=== PATIENT | female | born 1990 | race Caucasian/White ===

== ENCOUNTER 2019-10-30 13:10 | Observation (INO) | payer MEDICAID, OTHER ==
[~2019-10-30] VITALS: Ht 157.5 cm; Wt 78.5 kg
[2019-10-31] MEDS ORDERED: PREN-96 PO (05:12)
== END 2019-10-30 14:27 | disposition home or self-care (01) | DRG 566 ==
LOC: LDRP 13:10
PROVIDERS: ADMIT Obstetrics & Gynecology; ATTEND Obstetrics & Gynecology
DX: O62.9 Abnormality of forces of labor, unspecified (principal); O99.89 Other specified diseases and conditions complicating pregnancy, childbirth and the puerperium; M54.9 Dorsalgia, unspecified; Z3A.38 38 weeks gestation of pregnancy
CPT/HCPCS: 59025; 81002; G0378

== ENCOUNTER 2019-10-31 03:44 | Observation (INO) | payer MEDICAID ==
[2019-10-31] MEDS ORDERED: PREN-96 PO (05:12)
[2019-10-31] MEDS ORDERED: LIDOCAINE 2%HCL (LOCAL ANESTH.) INJ 20ML MDV ONE (10:34)
== END 2019-10-31 04:40 | disposition home or self-care (01) | DRG 566 ==
LOC: LDRP 03:44
PROVIDERS: ADMIT Obstetrics & Gynecology; ATTEND Obstetrics & Gynecology
DX: O62.9 Abnormality of forces of labor, unspecified (principal); Z3A.38 38 weeks gestation of pregnancy
CPT/HCPCS: 59025; 81002; G0378

== ENCOUNTER 2019-10-31 06:50 | Inpatient (IN) | payer MEDICAID ==
[~2019-10-31] VITALS: Ht 157.5 cm; Wt 78.5 kg
[~2019-10-31 06:50] MED LIST: PREN-96 PO
[2019-10-31] MEDS ORDERED: WITCH HAZEL-GLYCERIN PAD TOP PRN (07:45)
[2019-10-31] MEDS ORDERED: PHISODERM TOP SOLN 240ML BTL TOP PRN (07:45)
[2019-10-31] MEDS ORDERED: NALBUPHINE HCL 10 MG/1ml INJECTION IV PRN (07:45)
[2019-10-31] MEDS ORDERED: METHYLERGONOVINE MALEATE 0.2 MG/ML AMP IM PRN (07:45)
[2019-10-31] MEDS ORDERED: CARBOPROST TROMETHAMINE 250 MCG/1ML VIAL IM PRN (07:45)
[2019-10-31] MEDS ORDERED: LACT. RINGERS/OXYTOCIN 20UNITS 1,000 ML IV SCH (07:45)
[2019-10-31] MEDS ORDERED: DERMOPLAST 60ML BOTTLE TOP PRN (07:45)
[2019-10-31] MEDS ORDERED: LIDOCAINE 2%HCL (LOCAL ANESTH.) INJ 20ML MDV ID ONE (07:45)
[2019-10-31] MEDS ORDERED: LACTATED RINGER'S 1,000 ML IV ONE (08:43)
[2019-10-31 08:45] LABS: Urine WBC None Seen /hpf (0 - 5)
[2019-10-31] MEDS ORDERED: ePHEDrine SULFATE 50 MG/ML AMP IV ONE (08:45)
[2019-10-31] MEDS ORDERED: fentaNYL CITRATE 100 MCG/2 ML VL IV ONE (08:45)
[2019-10-31] MEDS ORDERED: LIDOCAINE HCL 2 %PF INJ 10ML AMP IJ ONE (08:45)
[2019-10-31] MEDS ORDERED: NALOXONE HCL 0.4 MG/ML VIAL IV ONE (08:45)
[2019-10-31] MEDS ORDERED: fentaNYL W ROPIVACAINE 150 ML EPI SCH (08:45)
[2019-10-31] MEDS ORDERED: PROMETHAZINE HCL 25 MG/ML 1ML IV PRN ×2 (08:45→09:00)
[2019-10-31 09:00] LABS: Eosinophils # (auto) 0 uL; Eosinophils % (auto) 0.1 % (0.0-7.0); Lymphocytes # (auto) 1.6 uL; Neutrophils # (auto) 10.8 uL
[2019-10-31] MEDS ORDERED: BUTORPHANOL TARTRATE 2 MG/1 ML VIAL IV PRN (09:00)
[2019-10-31 09:02] LABS: Basophils # (auto) 0 uL; Basophils % (auto) 0.2 % (0.0-2.0); Hematocrit 38.5 % (36.0-46.0); Hemoglobin 13.3 g/dL (12.2-16.2); Lymphocytes % (auto) 12.6 % (10.0-50.0); Mean Corpuscular Hemoglobin 34.2 pg (28.0-32.0); Mean Corpuscular Hgb Conc. 34.5 g/dL (32.0-36.0); Monocytes # (auto) 0.6 uL; Monocytes % (auto) 4.7 % (0.0-12.0); Neutrophils % (auto) 82.4 % (37.0-80.0); Platelet Count (auto) 287 10^3/uL (140-450); Red Blood Cells 3.89 10^6/uL (4.0-5.20); Red Cell Distribution Width 11.5 % (11.8-14.3); White Blood Cell 13.1 10^3/uL (4.4-10.8)
[2019-10-31 09:02] LABS: Urine Amorphous Crystal MANY /hpf (None Seen); Urine Bacteria NONE SEEN /hpf (None Seen); Urine Blood 2+ /uL (Negative); Urine Mucus FEW (None Seen)
[2019-10-31 09:09] LABS: INR 0.96 (0.9-1.15); Partial Thromboplastin Time 27.1 sec (23.64-32.05)
[2019-10-31 10:05] LABS: Albumin 2.7 g/dL (3.4-5.0); Calcium 8.9 mg/dL (8.5-10.1); Potassium 3.7 mmol/L (3.5-5.1)
[2019-10-31 10:11] LABS: BUN/Creatinine Ratio 20.8; Bilirubin, Total 0.3 mg/dL (0.2-1.0); Total Protein 7.4 g/dL (6.4-8.2)
[2019-10-31 10:13] LABS: Alcohol, Urine < 3.0 mg/dL (0-5); Amphetamine Screen, Urine NEGATIVE (NEGATIVE); Barbiturate Scree,Urine NEGATIVE (NEGATIVE); Benzodiazephine Screen, Urine NEGATIVE (NEGATIVE); Cannabinoid Screen, Urine NEGATIVE (NEGATIVE); Cocaine Screen, Urine NEGATIVE (NEGATIVE); Opiate Scree,Urine NEGATIVE (NEGATIVE); Phencyclidine Screen, Urine NEGATIVE (NEGATIVE)
--- NOTE | 2019-10-31 13:05 | NUR ---
Ambulation: Patient OOB with standby assistance by RN. Patient ambulated to bathroom with steady gait. Patient able to void 450 ML without difficulty. [facility] teaching provided with returned demonstration by patient. Clean gown provided and bed linen changed. Patient ambulated back to bed with steady gait and no distress noted.
[2019-10-31 15:30] VITALS: BP 96/52
[2019-10-31] MEDS ORDERED: LACT. RINGERS/OXYTOCIN 20UNITS 500 ML IV ONE (15:45)
[2019-10-31] MEDS ORDERED: ACETAMINOPHEN 325 MG TAB PO PRN (15:45)
[2019-10-31] MEDS: IBUPROFEN 600 MG TAB PO PRN (17:10)
[2019-10-31] MEDS ORDERED: DOCUSATE SOD 100 MG CAP PO ONE (17:45)
[2019-10-31 19:30] VITALS: BP 93/54
[2019-10-31 23:00] VITALS: BP 101/55
[2019-11-01 02:37] VITALS: BP 103/58
[2019-11-01] MEDS: IBUPROFEN 600 MG TAB PO PRN (04:27)
[2019-11-01 06:51] VITALS: BP 104/52
--- NOTE | 2019-11-01 07:00 | NUR ---
Discharge: Discharge instructions given as ordered. Pt encouraged to follow up with [facility] as instructed. All questions and concerns addressed. Patient verbalized understanding. Medication reconciliation completed and copy given to patient. Patient encouraged to prepare to depart unit. Addendum: 11/01/19 at 1223 by Chalo Colon RN PATIENT REFUSED INFLUENZA AND T-DAP.
[2019-11-01] MEDS ORDERED: DOCUSATE CALCIUM 240 MG CAP PO SCH (10:00)
[2019-11-01 11:00] VITALS: BP 96/58
--- NOTE | 2019-11-01 12:10 | NUR ---
Discharge: Patient taken to vehicle via wheelchair with all personal belongings, accompanied by staff and family member. No distress noted at time of departure, no adverse changes in status since initial assessment.
[2019-11-02 10:16] LABS: RPR Non Reactive (Non Reactive)
== END 2019-11-01 12:10 | disposition home or self-care (01) | DRG 560 ==
LOC: LDRP 06:50 → OBSVTOIN 07:20 → LDRP 07:21
PROVIDERS: ADMIT Obstetrics & Gynecology; ATTEND Obstetrics & Gynecology
PROC: 10E0XZZ Delivery of Products of Conception, External Approach (ICD-10-PCS; principal; 2019-10-31)
PROC: 0KQM0ZZ Repair Perineum Muscle, Open Approach (ICD-10-PCS; 2019-10-31)
DX: O70.1 Second degree perineal laceration during delivery (principal); Z37.0 Single live birth; Z3A.39 39 weeks gestation of pregnancy
CPT/HCPCS: 36415; 59025; 59409; 80053; 80307; 81001; 81002; 84112; 85025; 85610; 85730; 86592; 86850; 86900; 86901; 96365; 96366; G0378; J2590

== ENCOUNTER 2020-09-05 02:24 | Observation (INO) | payer MEDICAID ==
[2020-09-05] MEDS ORDERED: LACTATED RINGER'S 1,000 ML IV ONE (03:30)
== END 2020-09-05 05:05 | disposition home or self-care (01) ==
LOC: UNDOADMOB 02:24 → LDRP 02:24 → UNDODISOB 05:05
PROVIDERS: ADMIT Obstetrics & Gynecology; ATTEND Obstetrics & Gynecology
DX: O62.9 Abnormality of forces of labor, unspecified (principal); Z3A.28 28 weeks gestation of pregnancy
CPT/HCPCS: 59025; 76805; 76817; 81002; 96360; G0378

== ENCOUNTER → 2021-03-09 | Emergency (ER) | payer MEDICAID | END | disposition left against medical advice (07) | LOC: ER 19:35 | DX: R11.2 Nausea with vomiting, unspecified (principal); R51.9 Headache, unspecified; Z53.21 Procedure and treatment not carried out due to patient leaving prior to being seen by health care provider ==

== ENCOUNTER 2022-07-31 15:47 | Observation (INO) | payer MEDICAID | END 2022-07-31 17:10 | disposition home or self-care (01) | LOC: UNDOADMOB 15:47 → LDRP 15:47 | PROVIDERS: ADMIT Obstetrics & Gynecology; ATTEND Obstetrics & Gynecology | DX: O26.852 Spotting complicating pregnancy, second trimester (principal); O34.62 Maternal care for abnormality of vagina, second trimester; N89.8 Other specified noninflammatory disorders of vagina; Z3A.24 24 weeks gestation of pregnancy | CPT/HCPCS: 59025; 81002; 94760; G0378 ==